=== PATIENT | female | born 1990 | race Hispanic/Latino ===

== ENCOUNTER 2018-04-02 12:00 | Emergency (ER) | payer SELFPAY ==
[2018-04-02 12:46] LABS: Bilirubin Negative (Negative); Blood, Urine Large (Negative); Clarity CLOUDY (Clear); Glucose, Urine (Dipstick) Negative (Negative); Leukocyte Moderate (Negative); Nitrite Negative (Negative); Protein, Urine (Dipstick) Negative (Neg-Trace)
[2018-04-02 12:48] LABS: Bacteria/HPF None Seen HPF (None Seen); Hyaline Casts/LPF 0-3 HYALINE CAST LPF (0-3 Hyaline); Pathc Cast-AUWi Flag 0.14 (0-2.49); Pregnancy Test - Urine (BHCG) Negative (Negative); Pregu Control Background? CLEAR/WHITE (CLR/WHITE); Pregu Control Bar Appear? YES (CONTROL BAR); RBC/HPF GREATER THAN 50-TNTC HPF (0-3); Squamous Epithelial 0-3 HPF (0-3); WBC/HPF 21-50 HPF (0-3)
[2018-04-02 14:27] LABS: Hemoglobin 13.4 g/dL (12.0-16.0); Mean Corpuscular HGB CONC 33.2 g/dL (32.0-36.0); Mean Corpuscular Hemoglobin 31.1 pg (27.0-31.0); Mean Corpuscular Volume 93.7 fL (78.0-98.0); Platelet Count 282 thou/uL (130-400); RBC Distribution Width 11.6 % (11.5-14.5); Red Blood Cell (RBC) Count 4.29 mill/uL (4.20-5.40); White Blood Cell (WBC) Count 11.6 thou/uL (4.8-10.8)
[2018-04-02 14:48] LABS: Band 3 % (5-11); Eosinophils 2 % (0-10); Lymphocytes 39 % (21-51); MDiff Complete? YES; Monocytes 4 % (0-10); Neutrophil 52 % (42-75); PLT Morphology Comment Appears Adequate
== END 2018-04-02 16:10 | disposition home or self-care (01) ==
LOC: ERS 12:00
DX: N93.9 Abnormal uterine and vaginal bleeding, unspecified (principal); F41.9 Anxiety disorder, unspecified; F32.9 Major depressive disorder, single episode, unspecified; F17.210 Nicotine dependence, cigarettes, uncomplicated; G43.909 Migraine, unspecified, not intractable, without status migrainosus
CPT/HCPCS: 36415; 81003; 81015; 81025; 85025; 99284

== ENCOUNTER 2018-04-27 04:34 | Emergency (ER) | payer SELFPAY ==
[2018-04-27] MEDS ORDERED: Metoclopramide HCl 10 MG/2 ML VIAL ONE (04:54)
[2018-04-27] MEDS ORDERED: diphenhydrAMINE 50 MG/ML VIAL ONE (04:54)
[2018-04-27] MEDS ORDERED: Ketorolac Tromethamine 30 MG/ML VIAL ONE (05:00)
[2018-04-27] MEDS ORDERED: Dexamethasone 10 MG/ML VIAL ONE (06:07)
== END 2018-04-27 06:10 | disposition home or self-care (01) ==
LOC: ERS 04:34
DX: G43.909 Migraine, unspecified, not intractable, without status migrainosus (principal); F41.9 Anxiety disorder, unspecified; F32.9 Major depressive disorder, single episode, unspecified; F17.210 Nicotine dependence, cigarettes, uncomplicated
CPT/HCPCS: 96365; 96375; J1100; J1200; J1885; J2765

== ENCOUNTER 2018-06-03 16:21 | Emergency (ER) | payer SELFPAY ==
[2018-06-03 17:18] LABS: Bilirubin Negative (Negative); Blood, Urine Large (Negative); Clarity TURBID (Clear); Glucose, Urine (Dipstick) Negative (Negative); Leukocyte Large (Negative); Nitrite Negative (Negative); Protein, Urine (Dipstick) 30 mg/dL (Neg-Trace); Specific Gravity, Urine 1.021 (1.002-1.036); pH, Urine 7.5 (5.0-9.0)
[2018-06-03 17:19] LABS: Bacteria/HPF 2+ HPF (None Seen); Hyaline Casts/LPF 4-6 HYALINE CAST LPF (0-3 Hyaline); Pathc Cast-AUWi Flag 0.87 (0-2.49); WBC/HPF 21-50 HPF (0-3)
[2018-06-03 17:41] LABS: #Basophils 0.1 thou/uL (0.0-0.2); #Eosinphils 0.2 thou/uL (0.0-0.7); #Lymphocytes 3.1 thou/uL (1.20-3.40); #Monocytes 0.6 thou/uL (0.11-0.59); #Neutrophils 6.1 thou/uL (1.40-6.50); %Basophils 0.9 % (0.0-1.0); %Eosinophils 1.8 % (0.0-10.0); %Lymphocytes 30.9 % (21.0-51.0); %Monocytes 5.6 % (0.0-10.0); %Neutrophils 60.8 % (42.0-75.0); Mean Corpuscular HGB CONC 35.5 g/dL (32.0-36.0); Mean Corpuscular Hemoglobin 32.1 pg (27.0-31.0); Mean Corpuscular Volume 90.4 fL (78.0-98.0); Mean Platelet Volume 8.4 fL (7.4-10.4); Platelet Count 260 thou/uL (130-400); RBC Distribution Width 11.6 % (11.5-14.5); Red Blood Cell (RBC) Count 4.35 mill/uL (4.20-5.40); White Blood Cell (WBC) Count 10.1 thou/uL (4.8-10.8)
[2018-06-03 18:08] LABS: BHCG - Serum POSITIVE (NEGATIVE); Pregs Control Background? CLEAR/WHITE (CLR/WHITE); Pregs Control Bar Appear? YES (CONTROL BAR)
--- NOTE | 2018-06-03 19:23 | ULT ---
PELVIC ULTRASOUND: Comparison: None. History: Vaginal bleeding. Positive test. Technique: Multiplanar grayscale and color doppler images were obtained in a transabdominal and trans vaginal pelvic ultrasound. Spectral analysis of the doppler waveforms of the ovaries were performed. FINDINGS: Uterus is normal in size and appearance without focal abnormality. The endometrial stripe is normal i n size measuring 11 mm. No intrauterine is visualized. A very small amount of free fluid is seen in the pelvis. A small amount of fluid is seen in the cervi x. Both ovaries are normal in size and appearance and demonstrate normal internal flow. No ectopic pr egnancy is identified. IMPRESSION: No evidence of intrauterine or ectopic . POS: [facility]
== END 2018-06-03 19:57 | disposition home or self-care (01) ==
LOC: ERS 16:21
DX: O20.9 Hemorrhage in early pregnancy, unspecified (principal); O23.591 Infection of other part of genital tract in pregnancy, first trimester; N76.0 Acute vaginitis; O23.41 Unspecified infection of urinary tract in pregnancy, first trimester; O99.351 Diseases of the nervous system complicating pregnancy, first trimester; G43.909 Migraine, unspecified, not intractable, without status migrainosus; O99.341 Other mental disorders complicating pregnancy, first trimester; F32.9 Major depressive disorder, single episode, unspecified; F41.9 Anxiety disorder, unspecified; Z87.891 Personal history of nicotine dependence; Z3A.01 Less than 8 weeks gestation of pregnancy
CPT/HCPCS: 36415; 76856; 81003; 81015; 84702; 84703; 85025; 86900; 86901; 87480; 87491; 87510; 87591; 87660

== ENCOUNTER 2018-09-24 13:35 | Outpatient (CLI) | payer OTHER ==
--- NOTE | 2018-09-24 15:35 | ULT ---
OB ULTRASOUND: INDICATIONS: anatomy with size and dates. FINDINGS: A single viable intrauterine identified. Gestational age by ultrasound is 20 weeks 3 days. BPD: 20 weeks 2 days. HC: 20 weeks 0 days. AC: 20 weeks 6 days. FL: 20 weeks 3 days. EFW: 359 g (20 weeks 5 days). HEART RATE: 152 beats per minute. PLACENTA: Posterior. The placenta appears to be low lying. The edge of the placenta is difficult t o identify due to shadowing from the head. There does not appear to be a previa present. PRESENTATION: Vertex. AMNIOTIC FLUID: Adequate. MAGALYS recorded at 18.83 cm. CERVICAL LENGTH: 4.0 cm. ANATOMY: Intracranial contents, four-chamber heart, stomach, kidneys, cord insertion, bladder, spine , facial features, extremities, and three-vessel cord were all identified. No abnormality identified . IMPRESSION: 1. A 74-pgzm-3-day gestation by ultrasound. 2. Placenta is posterior and low lying. POS: [facility]
== END 2018-09-24 13:36 | disposition home or self-care (01) ==
LOC: BICULT 13:35
PROVIDERS: ATTEND Family Medicine
DX: O09.92 Supervision of high risk pregnancy, unspecified, second trimester (principal); O44.42 Low lying placenta NOS or without hemorrhage, second trimester; Z3A.20 20 weeks gestation of pregnancy
CPT/HCPCS: 76805

== ENCOUNTER 2018-11-17 23:50 | Day surgery (SDC) | payer OTHER ==
[2018-11-18 00:28] VITALS: BP 122/59; TEMP 98.8
[2018-11-18 00:31] VITALS: BMI 41.2
--- NOTE | 2018-11-18 01:04 | PDOC.LDHP ---
Labor and Delivery H&P Chief complaint: other (vaginal pressure) HPI: 28 yo at 28.3w by LMP/reported 1T sono here with cc of vaginal pressure. She states it started around 1830 last night. The discomfort will last about a minute then go away. It does not occur on her back but more on her sides or while walking. Denies any abdominal or back pain. Denies VB, LOF, discharge, dysuria, hematuria. Feeling regular movement. Has h/o PTL at 32 weeks and is on progesterone IM weekly. Current gestational age (weeks): 28 (28.3) Due date: 02/07/19 Dating criteria: last menstrual period, first trimester ultrasound Grav: 4 Para: 2 (1112) OB History Details: 1st - TSVD 2nd - SROM and PTL at 32 weeks Current complications: other (h/o PTL, on progesterone IM) Abnormal US findings: No Past Medical History: labor Current medications: pre-shiraz vitamins, other ([place] weekly) Previous surgical history: cholecystectomy Allergies/Adverse Reactions: Allergies Allergy/AdvReac Type Severity Reaction Status Date / Time No Known Allergies Allergy Verified 11/18/18 00:28 Social history: none - Physical Exam Vital signs reviewed and normal: yes General: resting Heart: RRR Lungs: CTAB Abdomen: NTTP Extremeties: no edema FHT: category 1 (140/mod/no accels/no decels) [place] contractions every: none - Vaginal Exam cm dilated: 0 Effacement: 0% Station: -3 - OB Labs Blood type: unknown RH: unknown Antibody Screen: unknown HIV: unknown RPR: unknown HEPSAg: unknown 1 hour GCT: unknown GBS: unknown - Assessment 28 yo F here with vaginal pressure, likely 2/2 round ligament pain 1. Vaginal pressure - Positional - No ctx on monitor - Will check FFN and UA - FHT reassuring - Cervix cl/th/hi - Tylenol if desired, denies pain at this time 2. H/o PTL - FFN as above - Continue weekly [place] Dispo pending results Addendum - Attending - Attending Attestation Date/Time: 11/18/18 8519 I personally evaluated the patient and discussed the management with Dr. Rocha. I agree with the History, Examination, Assessment and Plan documented above.
[2018-11-18 01:23] LABS: Bilirubin Negative (Negative); Blood, Urine Negative (Negative); Clarity CLEAR (Clear); Glucose, Urine (Dipstick) Negative (Negative); Leukocyte Negative (Negative); Nitrite Negative (Negative); Protein, Urine (Dipstick) Negative (Neg-Trace); Specific Gravity, Urine 1.016 (1.002-1.036); Urobilinogen 0.2 mg/dL (0.2-1.0)
[2018-11-18 01:26] LABS: Bacteria/HPF 1+ HPF (None Seen); Hyaline Casts/LPF 0-3 HYALINE CAST LPF (0-3 Hyaline); Pathc Cast-AUWi Flag 0.13 (0-2.49); RBC/HPF 0-3 HPF (0-3); Squamous Epithelial 0-3 HPF (0-3)
[2018-11-18 01:43] LABS: FFN Internal QC Analyzer PASS (PASS); FFN Internal QC Cassette PASS (PASS); Fetal Fibronectin Negative (Negative)
--- NOTE | 2018-11-18 02:55 | PDOC.EVN ---
Event Note - Event Note Event Note: FHTs stable. No UCs seen. FFN returns negative. UA with +1 bacteria. Plan: DC home with precautions. Rx. for Keflex 500 QID x [address] Dr[address] Tolentino next week.
== END 2018-11-18 02:58 | disposition home health service (06) ==
LOC: L&D/OP 23:50
PROVIDERS: ATTEND Family Medicine
DX: O99.89 Other specified diseases and conditions complicating pregnancy, childbirth and the puerperium (principal); R10.2 Pelvic and perineal pain; R82.71 Bacteriuria; O09.213 Supervision of pregnancy with history of pre-term labor, third trimester; Z3A.28 28 weeks gestation of pregnancy
CPT/HCPCS: 81001; 82731; 99284

== ENCOUNTER 2019-01-05 14:23 | Day surgery (SDC) | payer OTHER ==
[2019-01-05 14:58] VITALS: BP 110/61; TEMP 98.2; BMI 41.8
--- NOTE | 2019-01-05 16:23 | PDOC.FPROB ---
FMR OB H&P: Medications - Current Home Medications: Medication Instructions Recorded Confirmed Type No122/Iron/Folic Acid 1 each PO DAILY 11/18/18 01/05/19 History [ Multi Tablet] Allergies/Adverse Reactions: Allergies Allergy/AdvReac Type Severity Reaction Status Date / Time No Known Allergies Allergy Verified 01/05/19 14:58 FMR OB H&P: Vital Signs - Maternal Vital signs: Vital Signs - First Documented Temp Pulse Resp BP 98.2 F 86 18 110/61 01/05/19 14:41 01/05/19 14:41 01/05/19 14:41 01/05/19 14:41 FMR OB H&P: A/P - Problem List (1) Status: Acute Discussion: Date/Time: 01/05/19 1622 PCP: Rajan HPI: This is a 28 yo at 35.1 wks presenting for nausea and dizziness going on for 2 days. Patient read about her symptoms online and is concerned she may have pre-eclampsia. She denies headache, sob, swelling, or visual changes. She has no history of pre-eclampsia with previous pregnancies. She has no history of HTN. She states she has had nausea but no vomiting. Eating and drinking like normal. She states she has had lightheadedness but denies weakness, LOC, or falls. States she probably has not been drinking as much water as she should. She affirms movement, denies cxns, ROM, bleeding/discharge. History: OB hx: 1st TSVD, 2nd 32 wk , receiving Nita weekly PMH: denies asthma, HTN, DM PSH: cholecystectomy Meds: PNV All: NKDA Soc Hx: denies smoking, alcohol, drugs Fam Hx: denies downs, congenital defects REVIEW OF SYSTEMS: Gen: no fever, chills, or sweats Neuro: see hpi, denies headache ENT: denies congestion Eyes: no visual changes Resp: no cough, no SOB, no wheeze Card: denies chest pain, no palpitations GI: no N/V/D, no abdominal pain : no dysuria, no hematuria Skin: no rash, no erythema Psych: denies hx anxiety/depression Vitals: T: 98.2 R: 18 BP: 110/69 P:96 Sat: 98% on RA PHYSICAL EXAMINATION: General: NAD, alert and oriented x3 HEENT: EOMI, normal sclera Neck: Supple. Full ROM. Heart/Cardiovascular System: RRR, Cap refill < 3 seconds, no rub, no murmur Lungs/Respiratory System: clear to auscultation bilaterally. No increased work of breathing. Room air. Abdomen/Gastro-Intestinal System: no abdominal tenderness, normal bowel sounds, Gravid Extremities: Warm extremities. No cyanosis or edema. Neuro: No gross deficits appreciated Psychiatry: Awake, Alert and cooperative with exam Skin: No lesions, rashes Musculoskeletal: Full ROM A/P: This is a 28 yo at 35.1 wks presenting for nausea and light-headedness FHT: baseline 130, accels present, no decels, good variability [place]: no contractions # - Tolerated PO hydration while in triage - BPs all WNL over 1 hour period, no contractions noted on monitor - Re-assured, labor precautions discussed at length, patient has appointment in 2 days with PCP for f/u Addendum - Attending - Attending Attestation Date/Time: 01/05/19 7640 I personally evaluated the patient and discussed the management with Dr. Ernst. I agree with the History, Examination, Assessment and Plan documented above.
== END 2019-01-05 16:10 | disposition home or self-care (01) ==
LOC: L&D/OP 14:23 → SDC 14:23 → EDSTATUS 14:24 → L&D/OP 16:10
PROVIDERS: ATTEND Family Medicine
DX: O99.89 Other specified diseases and conditions complicating pregnancy, childbirth and the puerperium (principal); R11.0 Nausea; R42 Dizziness and giddiness; Z3A.35 35 weeks gestation of pregnancy

== ENCOUNTER 2019-01-07 10:06 | Day surgery (SDC) | payer OTHER ==
[2019-01-07 10:37] VITALS: BMI 42.3
[2019-01-07] MEDS ORDERED: hydrALAZINE 20 MG/ML VIAL SLOW IVP PRN (10:39)
--- NOTE | 2019-01-07 11:10 | PDOC.LDHP ---
Labor and Delivery H&P Chief complaint: other (Here for F/U from [facility] for noneactive NST at 35 weeks) HPI: Patient from [place] EGA: 35 weeks 3 days 28 yo SVDs in past at 35 weeks 3 days with A1DM. Dstick at [facility] was 108. Had NST there which was nonreactive...here for BPP. States no LOF, no VB, no CTX. Has good FM. Review of Systems; Complete ROS completed and negative as per HPI Current gestational age (weeks): 35 (3 days) Dating criteria: last menstrual period Grav: 4 Para: 2 OB History Details: No CS HX Current complications: gestational diabetes (A1DM..diet only) Abnormal US findings: No Current medications: pre- vitamins Previous surgical history: cholecystectomy Allergies/Adverse Reactions: Allergies Allergy/AdvReac Type Severity Reaction Status Date / Time No Known Allergies Allergy Verified 01/07/19 10:36 Social history: none - Physical Exam Vital signs reviewed and normal: yes (109/58 83 18 98) General: NAD Heart: RRR Lungs: CTAB Abdomen: gravid Extremeties: no edema [place] contractions every: NST with miminal variability but no decels, no CTX - Assessment A1DM at 35 weeks 3 days here for nonreactive NST. Accucheck was 108 at clinic. - Plan Plan: observation in L&D (As NST in nonreactive, we will defer to Full BPP. I have also ordered a complete OB sono for EFW and position in case we need to deliver. If delivery indicated, we will give steroids and monitor accuchecks.)
--- NOTE | 2019-01-07 11:58 | ULT ---
ULTRASOUND BIOPHYSICAL PROFILE: DATE: 01/07/2019 HISTORY: 28-year-old female in third trimester. High-risk . FINDINGS: breathin tone: 2 movement: 2 Amniotic fluid volume: 2 IMPRESSION: Normal biophysical profile score of 8 out of 8, excluding the nonstress test.
--- NOTE | 2019-01-07 11:58 | PDOC.EVN ---
Event Note - Event Note Event Note: @1155: L&D: BPP was 8/8 for this well controlled A1DM patient at 35 weeks. NST was initially without accels but now with accels. Do not suspect compromise at this time and Accucheck was normal. OK for outpatient care.
--- NOTE | 2019-01-07 12:02 | ULT ---
ULTRASOUND OBSTETRICAL COMPLETE: DATE: 01/07/2019 HISTORY: 28-year-old female in third trimester of presents for evaluation of weight, pos ition, and biophysical profile. FINDINGS: number: guzman lie: Vertex Maternal cervix: Completely obscured. Placenta: Maternal right lateral. No previa. Amniotic fluid volume: MAGALYS = 9.5cm heart rate: 141 bpm anatomy not evaluated. biometry: Biparietal diameter (BPD): 8.6 cm 34 w 5 d Head circumference (HC): 30.9 cm 34 w 4 d Abdominal circumference (AC): 30.8 cm 34 w 5 d Femur length (FL): 6.7 cm 34 w 4 d Average ultrasound age (AUA): 34 w 5 d Estimated date of delivery (KELLI): 02/13/2019 Estimated weight (EFW): 2487 g +/- 368 g IMPRESSION: 1) Live 3rd trimester intrauterine gestation. 2) Estimated gestational age of 34 weeks, 5 days 3) cephalic lie.
[2019-01-07 13:50] VITALS: BP 109/58; TEMP 98
== END 2019-01-07 12:31 | disposition home or self-care (01) ==
LOC: L&D/OP 10:06
PROVIDERS: ATTEND Family Medicine
DX: O36.8330 Maternal care for abnormalities of the fetal heart rate or rhythm, third trimester, not applicable or unspecified (principal); O24.410 Gestational diabetes mellitus in pregnancy, diet controlled; Z3A.35 35 weeks gestation of pregnancy
CPT/HCPCS: 76815; 76819; 99283

== ENCOUNTER → 2019-01-09 | Day surgery (SDC) | payer OTHER ==
[~2019-01-09] MED LIST: hydrALAZINE 20 MG/ML VIAL SLOW IVP PRN
[2019-01-09 15:43] LABS: Amnisure Test No Membranes Rupture (No Rupture)
[2019-01-09 15:44] LABS: Amnisure Internal Control QC ACCEPTABLE (ACCEPTABLE)
--- NOTE | 2019-01-09 18:01 | PRG ---
DATE OF SERVICE: 01/09/2019 PRIMARY OB: Dr. Tin Tolentino. CHIEF COMPLAINT: Pelvic pressure since Monday, so for 2 days or 3 days and some intermittent leakage of fluid. HISTORY OF PRESENT ILLNESS: The patient is a 28-year-old, G4, P2, female with an intrauterine at 36 weeks' gestation, who is presenting to Labor and Delivery for a pelvic pressure that she has been feeling since Monday. She reports that her baby feels. She feels like there is something between her legs when she is standing. The patient reports that she has been having some intermittent leakage of fluid. She describes the pain as sharp, sometimes stabbing, up from the vagina. She reports occasional contractions. The patient denies any recent illness, fever, fall, headache, chest pain, shortness of breath, nausea, vomiting, diarrhea, constipation, hip problems, knee problems, muscle weakness, vaginal bleeding, or urinary urgency or frequency. PAST MEDICAL HISTORY: Negative. PAST SURGICAL HISTORY: Negative. ALLERGIES: NO KNOWN DRUG ALLERGIES. SOCIAL HISTORY: Denies drug, alcohol, or tobacco use. OB LABS: Unavailable at the time of dictation. REVIEW OF SYSTEMS: Per HPI. PHYSICAL EXAMINATION: VITAL SIGNS: Blood pressure 105/56, heart rate of 84, and respiratory rate 18. GENERAL: She appears to be in no acute distress. She is alert, oriented, cooperative, and pleasant to interact with. HEAD: Normocephalic and atraumatic. LUNGS: Clear to auscultation bilaterally. HEART: Regular rate and rhythm. ABDOMEN: Gravid and soft. She does have some tenderness to deviation of the uterus to the left on her right side, consistent with ligamentous pain. EXTREMITIES: Nontender. GENITOURINARY: Cervix is 1.5, 60, and -1 station. LABORATORY DATA: AmniSure test is negative. 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 ASSESSMENT AND PLAN: The patient is a 28-year-old multiparous female with an intrauterine at 36 weeks, presenting with pelvic pain and some leakage of fluid. There is no evidence of rupture of membranes and the patient has been given reassurance that her pain is more associated with musculoskeletal pain. The patient has no evidence of labor at this time. Fetus has a category 1 tracing and reactive NST. She has been discharged to home and has a followup appointment on Monday with Dr. Tolentino, her primary OB, which she is encouraged to keep. Job ID: [id number]
== END | disposition home health service (06) ==
LOC: L&D/OP 13:35
PROVIDERS: ATTEND Family Medicine
DX: O99.89 Other specified diseases and conditions complicating pregnancy, childbirth and the puerperium (principal); R10.2 Pelvic and perineal pain; N89.8 Other specified noninflammatory disorders of vagina; Z3A.36 36 weeks gestation of pregnancy
CPT/HCPCS: 36415; 84112; 87480; 87510; 87660; 99283

== ENCOUNTER 2019-01-11 08:49 | Outpatient (CLI) | payer OTHER ==
--- NOTE | 2019-01-11 09:56 | ULT ---
OB ULTRASOUND: HISTORY: Size and dates. COMPARISON: A 09/24/2018 and 01/07/2019 exams. FINDINGS: Real-time imaging of the pelvis shows a single viable intrauterine in a cephalic presentati on. Cervical canal length is 3.3 cm. The placenta appears to be somewhat more posterior and right-s ided. The heart rate is 150 b.p.m. The amniotic fluid index is 10.0. Visually, the amniotic fluid appears borderline low. measurements are as follows: BPD 8.6 cm, 34 weeks 6 days Head circumference 31.4 cm, 35 weeks 2 days Abdominal circumference 31.6 cm, 35 weeks 4 days Femur length 6.9 cm, 35 weeks 3 days CORD DOPPLER: The systolic to diastolic ratio is 2.9 with a resistive index of 0.662 and pulsatility index of 1.003 . These are within the 50-95th percentile range. IMPRESSION: 1. Single viable intrauterine . Overall measurements are 35 weeks 2 days with an estimated date of delivery of 02/13/2019. 2. Estimated weight of 2660 +/- 390 gm. 3. Placenta which is more posterior and right-sided in location. No previa. POS: [facility]
== END 2019-01-11 08:50 | disposition home or self-care (01) ==
LOC: BICULT 08:49
PROVIDERS: ATTEND Family Medicine
DX: O09.893 Supervision of other high risk pregnancies, third trimester (principal); Z3A.35 35 weeks gestation of pregnancy
CPT/HCPCS: 76700; 76815

== ENCOUNTER 2019-01-28 09:17 | Day surgery (SDC) | payer OTHER ==
[2019-01-28 09:53] VITALS: BMI 43.0
--- NOTE | 2019-01-28 10:07 | ULT ---
US Biophysical Profile: 01/28/2019 9:29 AM CLINICAL HISTORY: Decreased movement. COMPARISON: 01/07/2019 FINDINGS: heart rate: 147 bpm. MAGALYS: 6.0 cm Biophysical profile: 8 of 8 IMPRESSION: Normal biophysical profile
--- NOTE | 2019-01-28 12:06 | PRG ---
DATE OF SERVICE: 01/28/2019 PRIMARY TRAP PULLER: Tin Tolentino MD CHIEF COMPLAINT: Decreased movement and nonreactive NST. HISTORY OF PRESENT ILLNESS: The patient is a 28-year-old G3, P2 female with an intrauterine at 38 weeks and 3 days, who is being sent from clinic this morning after a routine visit. The patient was noted to have a nonreactive NST and was sent to Labor and Delivery for evaluation. The patient reports that her baby has been moving just not as much as usual. She denies any obstetric complaints. She does have a history of A1 diabetes with this and reports good blood sugar control with the fasting blood sugar in the 80s to upper 90s and postprandial the same. She denies any recent illness, fever, fall, headache, chest pain, shortness of breath, nausea, vomiting, diarrhea, or constipation. She denies any new rashes, hip problems, knee problems, muscle weakness, vaginal bleeding, leakage of fluid, or urinary urgency. She does report she has been having some intermittent dizziness in the last couple of weeks. PAST MEDICAL HISTORY: Again, A1 diabetes with this . PAST SURGICAL HISTORY: Cholecystectomy. ALLERGIES: NO KNOWN DRUG ALLERGIES. MEDICATIONS: vitamins. SOCIAL HISTORY: Denies drug, alcohol, or tobacco use. OBSTETRIC LABORATORY DATA: Unavailable at time of dictation. REVIEW OF SYSTEMS: Per HPI. PHYSICAL EXAMINATION: VITAL SIGNS: Blood pressure 109/57, heart rate of 81, respiratory rate 18, temperature 98.2. GENERAL: She appears to be in no acute distress. She is alert, oriented, cooperative, and pleasant to interact with. HEAD: Normocephalic and atraumatic. LUNGS: Clear to auscultation bilaterally. HEART: Regular rate and rhythm. ABDOMEN: Gravid and soft. EXTREMITIES: Nontender with minimal edema. BPP was performed upon arrival and was noted to be 8/8. heart tracing demonstrates the fetus with a baseline in the 140s with moderate long-term variability, positive 15 x 15 accelerations. ASSESSMENT AND PLAN: The patient is a 28-year-old multiparous female, who is here for decreased movement and nonreactive nonstress testing. Biophysical profile is reassuring and the fetus demonstrated reactive nonstress test here in Labor and Delivery. The patient has been given reassurance. She has been discharged home with plans for induction of labor this . Job ID: [id number]
== END 2019-01-28 10:30 | disposition home health service (06) ==
LOC: L&D/OP 09:17
PROVIDERS: ATTEND Family Medicine
DX: O36.8130 Decreased fetal movements, third trimester, not applicable or unspecified (principal); Z3A.38 38 weeks gestation of pregnancy
CPT/HCPCS: 59025; 76819; 99282

== ENCOUNTER 2019-01-31 05:32 | Inpatient (IN) | payer MEDICAID, OTHER, SELFPAY ==
[2019-01-31] MEDS ORDERED: Butorphanol Tartrate 1 MG/ML VIAL SLOW IVP PRN (06:36)
[2019-01-31] MEDS ORDERED: Ibuprofen 800 MG TAB PO PRN (06:36)
[2019-01-31] MEDS ORDERED: NS w/ Oxytocin 10 units 500 ML IV SCH ×2 (06:36)
[2019-01-31] MEDS ORDERED: Carboprost 250 MCG/ML AMP IM PRN (06:36)
[2019-01-31] MEDS ORDERED: NS / Oxytocin 40 units/1000ml 1,000 ML IV PRN (06:36)
[2019-01-31] MEDS ORDERED: Misoprostol 200 MCG TAB PR PRN (06:36)
[2019-01-31] MEDS ORDERED: Ondansetron PF 4 MG/2 ML Vial IVP PRN ×2 (06:36→17:11)
[2019-01-31] MEDS ORDERED: Diphenoxylate HCl/Atropine Tablet PO PRN (06:36)
[2019-01-31] MEDS ORDERED: Promethazine HCl 25 MG/ML VIAL IM PRN (06:36)
[2019-01-31] MEDS ORDERED: Methylergonovine 0.2 MG/ML VIAL IM PRN (06:36)
[2019-01-31] MEDS ORDERED: HYDROcodone/Acetaminophen 5/325 mg Tablet PO PRN ×3 (06:36→17:11)
[2019-01-31] MEDS ORDERED: Lidocaine 1% (PF) 30 ML VIAL SC PRN (06:36)
[2019-01-31] MEDS ORDERED: hydrALAZINE 20 MG/ML VIAL SLOW IVP PRN ×2 (06:36→17:11)
[2019-01-31 06:43] VITALS: BMI 43.0
[2019-01-31] MEDS: Lactated Ringer's 1,000 ML IV SCH ×2 (07:00→12:21)
[2019-01-31 07:19] LABS: Hemoglobin 12.2 g/dL (12.0-16.0); Mean Corpuscular HGB CONC 34.3 g/dL (32.0-36.0); Mean Corpuscular Hemoglobin 29.3 pg (27.0-31.0); Mean Corpuscular Volume 85.4 fL (78.0-98.0); Mean Platelet Volume 9.6 fL (7.4-10.4); Platelet Count 174 thou/uL (130-400); RBC Distribution Width 13.4 % (11.5-14.5); Red Blood Cell (RBC) Count 4.17 mill/uL (4.20-5.40); White Blood Cell (WBC) Count 12.5 thou/uL (4.8-10.8)
[2019-01-31 08:00] LABS: HBSAg Index 0.29 S/CO (0-0.99); Hep B Surf Ag Non-Reactive S/CO (NonReactive); Syphilis Antibody Nonreactive (Nonreactive); Syphilis Antibody Index 0.02 S/CO (<1.00 Non-Reactive)
[2019-01-31] MEDS ORDERED: Lidocaine 1.5%/Epinephrine 1:200,000 5 ML AMPUL IJ ONE (12:20)
[2019-01-31] MEDS: Fentanyl 4 mcg/Bup 0.1% Cadd 100 ML ONE ×2 (12:40→12:54)
[2019-01-31] MEDS ORDERED: Milk Of Magnesia 30 ML UDCUP PO PRN (17:11)
[2019-01-31] MEDS ORDERED: Preparation H Ointment 28 GM TUBE PR PRN (17:11)
[2019-01-31] MEDS ORDERED: diphenhydrAMINE 25 MG CAP PO PRN (17:11)
[2019-01-31] MEDS ORDERED: Lanolin Ointment 7 GM TUBE TOP PRN (17:11)
[2019-01-31] MEDS ORDERED: Bisacodyl 10 MG SUPP PR PRN (17:11)
[2019-01-31] MEDS ORDERED: Benzocaine-Menthol 82.5 ML CAN TOP PRN (17:11)
[2019-01-31] MEDS ORDERED: NS / Oxytocin 40 units/1000ml 1,000 ML IV SCH (17:11)
[2019-01-31] MEDS: Ferrous Sulfate 325 MG TAB PO SCH (18:32)
[2019-01-31] MEDS: Ibuprofen 800 MG TAB PO SCH (21:48)
[2019-01-31] MEDS: Docusate Calcium (SURFAK) 240 MG CAP PO SCH (21:48)
[2019-02-01 06:00] LABS: #Basophils 0.1 thou/uL (0.0-0.2); #Eosinphils 0.1 thou/uL (0.0-0.7); #Lymphocytes 3.1 thou/uL (1.20-3.40); #Monocytes 0.7 thou/uL (0.11-0.59); #Neutrophils 8.9 thou/uL (1.40-6.50); %Basophils 0.4 % (0.0-1.0); %Eosinophils 0.9 % (0.0-10.0); %Monocytes 5.5 % (0.0-10.0); %Neutrophils 69.2 % (42.0-75.0); Hemoglobin 12.4 g/dL (12.0-16.0); Mean Corpuscular HGB CONC 34.4 g/dL (32.0-36.0); Mean Corpuscular Hemoglobin 30.4 pg (27.0-31.0); Mean Corpuscular Volume 88.2 fL (78.0-98.0); Mean Platelet Volume 9.6 fL (7.4-10.4); Platelet Count 176 thou/uL (130-400); RBC Distribution Width 13.6 % (11.5-14.5); Red Blood Cell (RBC) Count 4.09 mill/uL (4.20-5.40); White Blood Cell (WBC) Count 12.9 thou/uL (4.8-10.8)
[2019-02-01] MEDS: Ibuprofen 800 MG TAB PO SCH ×2 (06:06→14:26)
[2019-02-01] MEDS: Ferrous Sulfate 325 MG TAB PO SCH ×2 (08:22→17:12)
[2019-02-01] MEDS: Docusate Calcium (SURFAK) 240 MG CAP PO SCH (08:22)
[2019-02-01 08:52] VITALS: TEMP 97.8
[2019-02-01] MEDS ORDERED: Prenatal Vitamin 1 TAB PO SCH (09:00)
[2019-02-01] MEDS ORDERED: Bupivacaine 0.25% HCL 30 ML VIAL ONE (11:11)
[2019-02-01 11:54] VITALS: BP 107/58
[2019-02-01] MEDS ORDERED: Adacel (T-DAP) 0.5 ML SYRINGE IM ONE (17:11)
== END 2019-02-01 18:10 | disposition home or self-care (01) | DRG 807 ==
LOC: L&D 05:32 → 3SW 18:34 → EDSTATUS 02-08 16:20
PROVIDERS: ADMIT Family Medicine; ATTEND Family Medicine
PROC: 10E0XZZ Delivery of Products of Conception, External Approach (ICD-10-PCS; principal; 2019-01-31)
PROC: 10907ZC Drainage of Amniotic Fluid, Therapeutic from Products of Conception, Via Natural or Artificial Opening (ICD-10-PCS; 2019-01-31)
PROC: 3E033VJ Introduction of Other Hormone into Peripheral Vein, Percutaneous Approach (ICD-10-PCS; 2019-01-31)
DX: O24.420 Gestational diabetes mellitus in childbirth, diet controlled (principal); Z37.0 Single live birth; O99.214 Obesity complicating childbirth; E66.9 Obesity, unspecified; Z3A.39 39 weeks gestation of pregnancy
CPT/HCPCS: 36415; 36416; 51702; 85025; 85027; 86780; 86850; 86900; 86901; 87340; J2590; J3490; S0020

== ENCOUNTER 2020-03-02 09:37 | Emergency (ER) | payer MEDICAID, SELFPAY ==
[2020-03-02 10:13] LABS: #Basophils 0.1 thou/uL (0.0-0.2); #Eosinphils 0.1 thou/uL (0.0-0.7); #Lymphocytes 2.9 thou/uL (1.20-3.40); #Monocytes 0.4 thou/uL (0.11-0.59); #Neutrophils 6.1 thou/uL (1.40-6.50); %Basophils 0.7 % (0.0-1.0); %Eosinophils 1.6 % (0.0-10.0); %Lymphocytes 30.5 % (21.0-51.0); %Neutrophils 63.2 % (42.0-75.0); Hemoglobin 13.6 g/dL (12.0-16.0); Mean Corpuscular HGB CONC 33.7 g/dL (32.0-36.0); Mean Corpuscular Volume 91.9 fL (78.0-98.0); Platelet Count 243 thou/uL (130-400); White Blood Cell (WBC) Count 9.6 thou/uL (4.8-10.8)
[2020-03-02 10:44] LABS: ALT (SGPT) 35 U/L (8-55); AST (SGOT) 27 U/L (5-34); Albumin 4.1 g/dL (3.5-5.0); Alkaline Phosphatase 76 U/L (40-110); Anion Gap 13 mmol/L (10-20); BUN (Urea Nitrogen) 13 mg/dL (7.0-18.7); Bilirubin, Total 0.3 mg/dL (0.2-1.2); Calc. Creatinine Clearance 0 mL/min (70-130); Carbon Dioxide 24 mmol/L (22-29); Chloride 106 mmol/L (98-107); Estimated GFR-MDRD Greater than 90; Globulin 2.8 g/dL (2.4-3.5); Glucose 95 mg/dL (70-105); Potassium 4.3 mmol/L (3.5-5.1); Protein, Total 6.9 g/dL (6.0-8.3); Sodium 139 mmol/L (136-145)
[2020-03-02 12:15] LABS: Bilirubin Negative (Negative); Blood, Urine Negative (Negative); Clarity Turbid (Clear); Glucose, Urine (Dipstick) Normal (Negative); Ketone, Urine Negative (Negative); Leukocyte 250 Leu/uL (Negative); Nitrite Negative (Negative); Protein, Urine (Dipstick) Negative (Neg-Trace); RBC/HPF 0-3 HPF (0-3); Specific Gravity, Urine 1.025 (1.002-1.036); Urobilinogen Normal mg/dL (Less than 2)
[2020-03-02 12:18] LABS: Bacteria/HPF 1+ HPF (None Seen)
[2020-03-02 12:19] LABS: Pregnancy Test - Urine (BHCG) Negative (Negative); Pregu Control Background? CLEAR/WHITE (CLR/WHITE); Pregu Control Bar Appear? YES (CONTROL BAR); Specific Gravity 1.025 (1.002-1.036)
[2020-03-02] MEDS ORDERED: Ondansetron PF 4 MG/2 ML Vial ONE (12:34)
[2020-03-02] MEDS ORDERED: Ketorolac Tromethamine 30 MG/ML VIAL ONE (12:34)
--- NOTE | 2020-03-02 13:00 | CT ---
EXAM: CT abdomen and pelvis with IV contrast PROVIDED CLINICAL HISTORY: Epigastric pain COMPARISON: 10/08/2016 FINDINGS: The visualized lung bases are free of significant opacity. The solid abdominal organs demonstrate an unremarkable CT appearance. There is no bowel dilatation, inflammatory fat stranding, free fluid or free air apparent. There is n o evidence for appendicitis. Gallbladder is surgically absent. No regional lymph node enlargement apparent. The regional major vascular structures appear unremarkable. The osseous structures demonstrate no concerning lytic or blastic lesions. IMPRESSION: No evidence for an acute process.
[2020-03-02] MEDS ORDERED: Iopamidol-370 76% 500 ML 1 ML ONE (13:49)
== END 2020-03-02 13:35 | disposition home or self-care (01) ==
LOC: ERS 09:37
DX: N39.0 Urinary tract infection, site not specified (principal); R10.12 Left upper quadrant pain; R10.13 Epigastric pain; R19.7 Diarrhea, unspecified; R42 Dizziness and giddiness; G43.909 Migraine, unspecified, not intractable, without status migrainosus; F41.9 Anxiety disorder, unspecified; Z87.891 Personal history of nicotine dependence
CPT/HCPCS: 36415; 74177; 80053; 81003; 81015; 81025; 83690; 85025; 87086; 96361; 96374; 96375; J1885; J2405; Q9967

== ENCOUNTER 2023-12-21 20:48 | Emergency (ER) | payer SELFPAY ==
[2023-12-21 21:49] LABS: #Basophils Less than 0.03 10x3/uL (0.0-0.2); %Basophils 0.1 % (0.0-1.0); %Eosinophils 0.4 % (0.0-10.0); %Lymphocytes 11.6 % (21.0-51.0); %Monocytes 3.7 % (0.0-10.0); %Neutrophils 83.7 % (42.0-75.0); Hematocrit 45.1 % (36.0-47.0); Hemoglobin 15.1 g/dL (12.0-16.0); Mean Corpuscular HGB CONC 33.5 g/dL (32.0-36.0); Mean Corpuscular Hemoglobin 31.3 pg (27.0-31.0); Mean Corpuscular Volume 93.4 fL (78.0-98.0); Mean Platelet Volume 10.9 fL (7.4-10.4); Platelet Count 289 10x3/uL (130-400); RBC Distribution Width 12.8 % (11.5-14.5); Red Blood Cell (RBC) Count 4.83 mill/uL (4.20-5.40)
[2023-12-21 22:11] LABS: Troponin I Less than 0.010 ng/mL (< 0.028)
[2023-12-21 22:12] LABS: ALT (SGPT) 19 U/L (8-55); AST (SGOT) 13 U/L (5-34); Albumin 4.3 g/dL (3.5-5.0); Alkaline Phosphatase 92 U/L (40-110); Anion Gap 16 mmol/L (10-20); BUN (Urea Nitrogen) 14 mg/dL (7.0-18.7); Bilirubin, Total 0.3 mg/dL (0.2-1.2); Calc. Creatinine Clearance 0 mL/min (70-130); Calcium 9.8 mg/dL (7.8-10.44); Carbon Dioxide 19 mmol/L (22-29); Chloride 108 mmol/L (98-107); Estimated GFR 103; Globulin 3.9 g/dL (2.4-3.5); Glucose 127 mg/dL (70-105); Potassium 4.1 mmol/L (3.5-5.1); Protein, Total 8.2 g/dL (6.0-8.3); Sodium 139 mmol/L (136-145)
[2023-12-21] MEDS ORDERED: Ketorolac Tromethamine 30 MG (1 mL) VIAL ONE (22:47)
[2023-12-21] MEDS ORDERED: Ondansetron PF 4 MG/2 ML Vial ONE (22:47)
[2023-12-21 23:16] LABS: Bacteria/HPF 4+ HPF (None Seen); Bilirubin Negative (Negative); Blood, Urine Negative (Negative); CAUTI Indications for Culture Alt mental st,lethar; Clarity Turbid (Clear); Glucose, Urine (Dipstick) Normal (Negative); Ketone, Urine Negative (Negative); Leukocyte 500 Leu/uL (Negative); Nitrite 2+ (Negative); Protein, Urine (Dipstick) 10 mg/dL (Neg-Trace); RBC/HPF 0-3 HPF (0-3); Specific Gravity, Urine 1.025 (1.002-1.036); Urobilinogen Normal mg/dL (Less than 2)
[2023-12-21 23:17] LABS: Pregnancy Test - Urine (BHCG) Negative (Negative); Pregu Control Background? CLEAR/WHITE (CLR/WHITE); Pregu Control Bar Appear? YES (CONTROL BAR); Specific Gravity 1.025 (1.002-1.036); Urine Culture Reflex Yes Yes
[2023-12-21] MEDS ORDERED: cefTRIAXone (ROCEPHIN) 1 GM VIAL ONE (23:36)
[2023-12-21] MEDS ORDERED: Sodium Chloride 0.9% 100 ML ONE (23:37)
[2023-12-22 00:09] LABS: Troponin I Less than 0.010 ng/mL (< 0.028)
== END 2023-12-22 00:50 | disposition home or self-care (01) ==
LOC: ERS 20:48
DX: R55 Syncope and collapse (principal); N39.0 Urinary tract infection, site not specified; F17.210 Nicotine dependence, cigarettes, uncomplicated
CPT/HCPCS: 36415; 71045; 80053; 81001; 81025; 84484; 85025; 85379; 87077; 87086; 87186; 93005; 96365; 96375; J0696; J1885; J2405; J3490

== ENCOUNTER 2025-03-09 16:23 | Emergency (ER) | payer SELFPAY | END 2025-03-09 18:36 | disposition home or self-care (01) | LOC: ERS 16:23 | DX: S93.402A Sprain of unspecified ligament of left ankle, initial encounter (principal); F17.210 Nicotine dependence, cigarettes, uncomplicated; X50.1XXA Overexertion from prolonged static or awkward postures, initial encounter; Y93.01 Activity, walking, marching and hiking | CPT/HCPCS: 99283 ==